=== PATIENT | male | born 1980 | race Caucasian/White ===

== ENCOUNTER 2022-07-08 15:15 | Emergency (ER) | payer MEDICAID ==
[~2022-07-08] VITALS: Ht 160 cm; Wt 70.0 kg
[2022-07-08 15:21] VITALS: BP 151/106
[2022-07-08] MEDS ORDERED: ACETAMINOPHEN 325MG TABLET PO ONE (18:30)
[2022-07-08] MEDS ORDERED: TETANUS, DIPHTHERIA, PERTUSSIS VAC/PF 0.5ML (>10YR OLD) IM ONE (20:00)
== END 2022-07-08 20:06 | disposition home or self-care (01) ==
LOC: ER 15:15
DX: S02.2XXA Fracture of nasal bones, initial encounter for closed fracture (principal); X58.XXXA Exposure to other specified factors, initial encounter; Y93.89 Activity, other specified; Y92.89 Other specified places as the place of occurrence of the external cause; Y99.8 Other external cause status
CPT/HCPCS: 70160; 90471; 90715; 99283

== ENCOUNTER 2024-08-04 18:04 | Emergency (ER) | payer SELFPAY ==
[~2024-08-04] VITALS: Ht 162.6 cm; Wt 70.0 kg
[2024-08-04 18:15] VITALS: BP 153/108; PULSE 89; RESP 18; TEMP 98.2; O2SAT 98
[2024-08-04 19:40] LABS: CLARITY URINE CLEAR (CLEAR); COLOR URINE YELLOW (YELLOW); GLUCOSE URINE NEGATIVE (NEGATIVE); KETONES URINE NEGATIVE (NEGATIVE); LEUKOCYTE ESTERASE URINE NEGATIVE (NEGATIVE); NITRITE URINE NEGATIVE (NEGATIVE); OCCULT BLOOD URINE TRACE (NEGATIVE); PH URINE 5.5 (4.5-8.0); PROTEIN URINE 2+ (NEGATIVE); SPECIFIC GRAVITY URINE 1.032 (1.005-1.030)
[2024-08-04 19:57] LABS: WBC URINE NONE SEEN /hpf (0-2)
[2024-08-04 19:58] LABS: BACTERIA URINE NONE SEEN; SQUAMOUS EPITHELIAL CELL URINE FEW /lpf (RARE/1+)
== END 2024-08-04 20:50 | disposition home or self-care (01) ==
LOC: ER 18:04
DX: R36.1 Hematospermia (principal)
CPT/HCPCS: 81003; 99283